=== PATIENT | male | born 2000 ===

== ENCOUNTER → 2023-11-01 | Outpatient (REF) | payer OTHER ==
[2023-11-01 12:50] LABS: SEMEN APPEARANCE OPAQUE (OPAQUE); SEMEN VISCOSITY LIQUID (LIQUID); SEMEN VOLUME 3.4 ml (2.0-5.0); WBC CONCENTRATION <=1 M/ml (<=1 M/ml)
== END ==
LOC: M LAB REF 12:32
PROVIDERS: ATTEND Specialist
DX: I86.1 Scrotal varices (principal)

== ENCOUNTER → 2023-11-25 | Outpatient (REF) | payer OTHER ==
[2023-11-25 14:33] LABS: SEMEN APPEARANCE OPAQUE (OPAQUE); SEMEN VOLUME 2.7 ml (2.0-5.0)
[2023-11-25 14:34] LABS: SEMEN VISCOSITY LIQUID (LIQUID); SEMEN pH 8.5 (7.0-8.0); SPERM CONCENTRATION 18.6 M/ml (>=15.0); WBC CONCENTRATION <=1 M/ml (<=1 M/ml)
== END ==
LOC: M LAB REF 13:06
PROVIDERS: ATTEND Specialist
DX: I86.1 Scrotal varices (principal)

== ENCOUNTER → 2024-06-05 | Outpatient (REF) | payer OTHER ==
[2024-06-05 11:03] LABS: SEMEN APPEARANCE OPAQUE (OPAQUE); SEMEN VISCOSITY VISCOUS (LIQUID); SEMEN VOLUME 2.4 ml (2.0-5.0); SEMEN pH 7.5 (7.0-8.0); SPERM CONCENTRATION 14.9 M/ml (>=15.0); WBC CONCENTRATION >1 M/ml (<=1 M/ml)
[2024-06-05 11:04] LABS: TOTAL PROGRESSIVE SPERM 16.3 M/Ejac.
== END ==
LOC: M LAB REF 10:53
PROVIDERS: ATTEND Specialist
DX: I86.1 Scrotal varices (principal)